=== PATIENT | female | born 1965 | race Caucasian/White ===

== ENCOUNTER → 2019-03-22 | Outpatient (CLI) | payer OTHER ==
[~2019-03-22] MED LIST: ALLEGRA30 MG PO; ARMOUR THYROID60 M1 PO; ASPIR 8181 MG; BENTYL20 MG PO; COQ1050 MG PO; ESTROGEN; FLONASE 0.05%50 MCG NASAL; GLUCOSAMINE-CH1 EA13 PO; IBUPROFEN 800800 M1; LISINOPRIL10 MG; MEGA BIOTIN10000 MCG PO; MILK THISTLE500 MG PO; NEXIUM20 MG PO; NEXIUM40 MG PO; PROBIOTIC1 EAC1 PO; PROGESTERONE100 MG PO; SIMVASTATIN40 MG; VICODIN; VITAMIN D31000 UNI2 PO; VITAMIN E400 UNI2 PO; VIVELLE-DOT1 EAC1 TD; ZANTAC 150MG T150 M1
--- NOTE | 2019-03-22 21:07 | CARDNUC ---
[place] [address] CARDIAC NUCLEAR IMAGING REPORT Name: MIRANDA CORNEJO Room: [facility]#: [id number] Admission: 03/22/19 Attend Phys: Edmond Woodward, Discharge: Date of : 61 Date of Service: 03/22/192105 Report #: [id number] THIS REPORT FOR: //name// APPROVED REPORT Study performed: 03/22/2019 09:23:44 Exam: Nuclear Stress Test Indication: Chest pain, Dyspnea, bradycardia Patient Location: Out-Patient Stress Tech: Priya Bazzi Stress Nurse: Oliva Tsai RN NM Tech:ERAN Moses Ht: 5 ft 5 in Wt: 152 lbs BSA: 1.76 m2 BMI: 25.29 Medical History Medical History: past hx hyperlipidemia and hypertension Medications: no cardiac meds Allergies: darvocet, percolone Cardiac Risk Factors: age,, HTN, Hyperlipidemia, FHX of CAD Exercise History: Physically active Stress Test Details Stress Test: Exercise stress testing was performed using a Naif protocol. HR Resting HR: 61 bpm Max Heart Rate (APMHR): 165 bpm Max HR Achieved: 152 bpm Target HR (85% APMHR): 140 bpm % of APMHR: 92 Recovery HR: 91 bpm BP Resting BP: 147/95 mmHg Max BP: 209/101 mmHg ECG Resting ECG: Sinus Rhythm Stress ECG: Sinus Tachycardia ST Change: None Arrhythmia: None Recovery ECG: Sinus Rhythm Recovery ST Change: Horizontal ST depression Recovery ST Deviation: 0.5 [place] [address] CARDIAC NUCLEAR IMAGING REPORT Name: MIRANDA CORNEJO Room: [facility]#: [id number] Admission: 03/22/19 Attend Phys: Edmond Woodward, Discharge: Date of : 61 Date of Service: 03/22/19 210 Report #: [id number] Recovery Arrhythmia: None Clinical Reason for Termination: Fatigue, Dyspnea Exercise duration: 7 min 14 sec Exercise capacity: 8.94 METs Overall Exercise Capacity for Age: Excellent Functional Aerobic Impairment 92% The patient tolerated standard Naif protocol exercise without significant cardiac symptoms. Stress ECG Conclusion The baseline 12-lead EKG shows sinus rhythm without significant ST or T wave abnormality. EKGs obtained during and post exercise showed sinus rhythm and sinus tachycardia. There were no significant ST segment changes during exercise. Late in recovery there was 0.[address] segment depression that does not meet diagnostic criteria for stress-induced ischemia. There were no stress-induced arrhythmias. NM EXAM: Myocardial Perfusion REST/STRESS Imaging Protocol: Rest Tc-99m/Stress Tc-99m 1 day Resting Data Rest SPECT myocardial perfusion imaging was performed in supine position 30 minutes following the intravenous injection of 10.9 mCi of Tc-99m Sestamibi. Time of rest injection: 0800 Date: 03/22/2019 The images were gated to evaluate regional wall motion and calculate left ventricular ejection fraction. Administration Route: IV Administration Site: Right Hand Exercise Stress At peak stress, the patient was injected intravenously with 34.4mCi of Tc-99m Sestamibi. Time of stress injection: 924 Date: 03/22/2019 Administration Route: IV Administration Site: Right Hand Gated Stress SPECT was performed 30 minutes after stress injection. The images were gated to evaluate regional wall motion and calculate left ventricular ejection fraction. Prone imaging [place] [address] CARDIAC NUCLEAR IMAGING REPORT Name: MIRANDA CORNEJO Room: [facility]#: [id number] Admission: 03/22/19 Attend Phys: Edmond Woodward, Discharge: Date of : 61 Date of Service: 03/22/19 2106 Report #: [id number] Study: Good Artifact: Mild Breast artifact Study Data At rest, the left ventricular ejection fraction was 66%.. Post stress, the left ventricular ejection was 66%.. TID = 0.77. Perfusion Myocardial perfusion images obtained in the supine position at rest and post exercise stress show a small region of mild photopenia in the distal to apical anterior wall that resolves completely with post stress imaging suggesting breast attenuation artifact. No other significant fixed or reversible defects were identified. Wall Motion Normal left ventricular wall motion. Nuclear Conclusion ECG Findings: negative for ischemia Clinical Findings: negative for ischemia Nuclear Findings: negative for ischemia Exercise Capacity: normal Left Ventricular Function: normal Risk Study: low Myocardial perfusion images show no defect to suggest infarct or ischemia. Left ventricular systolic function appears normal on gated studies. This is a low risk study. <Conclusion> The baseline 12-lead EKG shows sinus rhythm without significant ST or T wave abnormality. EKGs obtained during and post exercise showed sinus rhythm and sinus tachycardia. There were no significant ST segment changes during exercise. Late in recovery there was 0.[address] segment depression that does not meet diagnostic criteria for stress-induced ischemia. There were no stress-induced arrhythmias. <ELECTRONICALLY SIGNED> By: Edmond Woodward MD, FACC 03/22/192105 05 05 Edmond Woodward MD, FACC /INF
== END ==
LOC: M.NUC 03-07 13:38
DX: R06.09 Other forms of dyspnea (principal); R07.1 Chest pain on breathing; K21.9 Gastro-esophageal reflux disease without esophagitis; I10 Essential (primary) hypertension; E78.5 Hyperlipidemia, unspecified; M17.0 Bilateral primary osteoarthritis of knee; F32.9 Major depressive disorder, single episode, unspecified; Z90.710 Acquired absence of both cervix and uterus; Z79.82 Long term (current) use of aspirin; Z79.899 Other long term (current) drug therapy